=== PATIENT | male | born 1995 | race Caucasian/White ===

== ENCOUNTER 2020-06-17 06:54 | Outpatient (NON) | payer BC, SELFPAY ==
[2020-06-18 13:09] LABS: SARS-CoV-2 RNA PCR Negative
== END 2020-06-17 06:55 ==
PROVIDERS: PCP Family Medicine; Visit Provider Physician Assistant
DX: Z20.828 Contact with and (suspected) exposure to other viral communicable diseases (principal); R68.89 Other general symptoms and signs
CPT/HCPCS: 87635; C9803; U0003